=== PATIENT | female | born 1980 | race Caucasian/White ===

== ENCOUNTER 2018-09-08 13:05 | Emergency (ER) | payer OTHER ==
[~2018-09-08] VITALS: Ht 160 cm; Wt 123.7 kg
[~2018-09-08 13:05] MED LIST: ATEN-51; HYDR25TA6; NO NEW MEDS
[2018-09-08 13:17] VITALS: BP 137/67; PULSE 74; RESP 18; Ht 160 cm; Wt 123.7 kg
--- NOTE | 2018-09-08 13:37 | ERD ---
ER Documentation Chief Complaint Chief Complaint COLD SYMPTOMS X 1 WEEK HPI 38-year-old female presents with complaint of cough and congestion for the past week. Patient states that she has not been taking any medications rather just drinking teas. Denies any chest pain, shortness of breath, vomiting, abdominal pain, fevers, hemoptysis. ROS All systems reviewed and are negative except as per history of present illness. Medications Home Meds Reported Medications [No New Meds] No Conflict Check 12/29/10 Atenolol* (Atenolol*) 25 Mg Tablet 08/12/09 Hydrochlorothiazide (Hydrochlorothiazide) 25 Mg Tablet 08/12/09 Allergies Allergies: Coded Allergies: aspirin (Verified Allergy, Mild, 11/23/13) PMhx/Soc History of Surgery: No Anesthesia Reaction: No Hx Neurological Disorder: No Hx Respiratory Disorders: No Hx Cardiac Disorders: Yes (HTN) Hx Psychiatric Problems: Yes (PANIC ATTACKS) Hx Miscellaneous Medical Probl: No Hx Alcohol Use: No Hx Substance Use: No Hx Tobacco Use: No FmHx Family History: No diabetes, No coronary disease, No other Physical Exam Vitals Vital Signs Date Temp Pulse Resp B/P (MAP) Pulse Ox O2 O2 Flow FiO2 Time Delivery Rate 09/08/18 98.5 74 18 137/67 95 13:17 (90) Physical Exam Const: No acute distress Head: Atraumatic Eyes: Normal Conjunctiva ENT: Normal External Ears, Nose and Mouth. Neck: Full range of motion. No meningismus. Resp: Clear to auscultation bilaterally Cardio: Regular rate and rhythm, no murmurs Abd: Soft, non tender, non distended. Normal bowel sounds Skin: No petechiae or rashes Back: No midline or flank tenderness Ext: No cyanosis, or edema Neur: Awake and alert Psych: Normal Mood and Affect Results 24 hrs Laboratory Tests Test 09/08/18 13:47 POC Beta HCG, Qualitative NEGATIVE Current Medications Medications Dose Sig/Brody Start Time Status Last (Trade) Ordered Route PRN Stop Time Admin Dose Reason Admin Promethazine 10 ml ONCE ONCE 09/08/18 DC 09/08/18 HCl/ PO 14:00 09/08/18 13:44 Codeine 14:01 (Phenergan/ Codeine) Procedures/MDM DIAGNOSTIC IMAGING REPORT Patient: SUSI GARCIA : 1980 Age: 38 Sex: F MR #: [id number] DOS: 09/08/18 1334 Ordering MD: JESSICA TAVAREZ Location: [facility] Room/Bed: PROCEDURE: Chest x-ray CLINICAL INDICATION: cough. TECHNIQUE: One view frontal. COMPARISON: None available FINDINGS: Please note that the study is limited due to a limited inspiration and motion artifact. The cardiac silhouette size is mildly prominent. This may be related to the limited inspiration.. No gross infiltrates are noted. Hilar regions are grossly unremarkable. No pneumothorax is identifiable. IMPRESSION: 1. Limited study. 2. Mild prominence of the cardiac silhouette. 3. No gross infiltrates noted. RPTAT: HGSG .Gerson Melendrez MD, MD Date Time Electronically viewed and signed by .Gerson Melendrez MD, MD on 09/08/2018 14:00 .G/ CC: JESSICA TAVAREZ [phone] MDM: I have low suspicion for tubercolosis, pneumonia, pleural effusion, acute heart failure, foreign body aspiration, pulmonary embolism, pneumothorax, or other emergent etiology. Patients O2 sat is normal and is not having difficulty breathing, therefore patient is fit for discharge. Patient discharged with rx for promethazine with codeine and advised to follow up with PMD. Patient discharged with strict ER precautions. All questions answered at discharge. Departure Diagnosis: Primary Impression: Upper respiratory infection Condition: Stable JESSICA TAVAREZ Sep 08, 2018 13:37
[2018-09-08] MEDS ORDERED: PROMETHAZINE/CODEINE 5ML CUP PO ONE (14:00)
[2018-09-08] MEDS ORDERED: PROM5SYR2 PO (14:40)
== END 2018-09-08 14:47 | disposition home or self-care (01) ==
LOC: FTE 13:05
DX: J06.9 Acute upper respiratory infection, unspecified (principal); I10 Essential (primary) hypertension
CPT/HCPCS: 71045; 81025; Z7502; Z7610